=== PATIENT | male | born 1935 | race Caucasian/White ===

== ENCOUNTER 2021-01-11 04:09 | Inpatient (IN) | payer MEDICARE ==
[~2021-01-11] VITALS: Ht 177.8 cm; Wt 69.8 kg
[~2021-01-11 04:09] MED LIST: ACYC400T20 PO; ASPI-556 PO; CARV3.12 PO; SIMV-46 PO; TICA90TA PO
[2021-01-11 04:41] LABS: BASOPHILS % (AUTO) 0.5 % (0.0-5.0); EOSINOPHILS % (AUTO) 4.1 % (0.0-8.0); HEMATOCRIT 31.7 % (42-54); LYMPHOCYTES % (AUTO) 18.3 % (21.0-51.0); MEAN CORPUSCULAR HEMOGLOBIN 30.7 pg (27.0-33.0); MEAN CORPUSCULAR HGB CONC 33.1 g/dL (32.0-36.0); MEAN CORPUSCULAR VOLUME 92.7 fL (79-99); MONOCYTES % (AUTO) 5.6 % (3.0-13.0); NEUTROPHILS % (AUTO) 71.2 % (40.0-77.0); PLATELET COUNT (AUTO) 263 K/uL (130-400); RED BLOOD CELL COUNT(AUTO) 3.42 MIL/uL (4.50-6.20); RED CELL DISTRIBUTION WIDTH 13.9 % (11.0-15.5); WHITE BLOOD COUNT (AUTO) 8.6 K/uL (4.8-10.8)
[2021-01-11 04:46] LABS: CREATININE 2.1 mg/dL (0.5-1.5); POTASSIUM 4.8 mmol/L (3.5-5.1)
[2021-01-11 04:48] LABS: INR 1.05 (0.85-1.15); PROTHROMBIN TIME 11.4 SEC (9.6-11.6)
[2021-01-11 04:49] LABS: PARTIAL THROMBOPLASTIN TIME 23.6 SEC (26.3-35.5)
[2021-01-11 04:51] LABS: BILIRUBIN,TOTAL 0.3 mg/dL (0.2-1.0); TOTAL PROTEIN, SERUM 6.9 g/dL (6.0-8.3)
[2021-01-11 05:25] LABS: APPEARANCE,URINE Clear (CLEAR); BILIRUBIN,URINE Negative (NEGATIVE); COLOR,URINE Yellow (YELLOW); GLUCOSE, URINE (UA) Negative (NEGATIVE); KETONES,URINE Negative (NEGATIVE); LEUKOCYTE ESTERASE ,URINE Trace (NEGATIVE); NITRATE,URINE Negative (NEGATIVE); OCCULT BLOOD,URINE Small (NEGATIVE); PROTEIN,URINE POS 1+ mg/dL (NEGATIVE)
[2021-01-11 05:51] LABS: BACTERIA,URINE Few /HPF (None Seen); SQUAMOUS EPITHELIAL CELL,UR 0-2 /HPF (0-2)
[2021-01-11] MEDS ORDERED: CEFTRIAXONE 1G VIAL ONE (07:37)
[2021-01-11] MEDS ORDERED: ACETAMINOPHEN WITH CODEINE 1 TAB TAB ONE (07:49)
[2021-01-11] MEDS: CEFTRIAXONE 1G VIAL IVP SCH (09:00)
[2021-01-11 09:55] VITALS: BP 146/84
[2021-01-11] MEDS ORDERED: ACETAMINOPHEN WITH CODEINE 1 TAB TAB PO PRN (11:00)
[2021-01-11] MEDS ORDERED: 0.9%NACL 1000ML 1,000 ML IV SCH (11:15)
[2021-01-11 12:00] VITALS: BP 134/70
[2021-01-11] MEDS ORDERED: HYDROMORPHONE 0.5 MG SYG (0.5MG/0.5ML) IVP PRN (12:00)
[2021-01-11] MEDS ORDERED: ONDANSETRON 4MG INJ IVP PRN (12:00)
[2021-01-11 16:45] VITALS: BP 83/56
[2021-01-11 19:15] VITALS: BP 93/60
[2021-01-11 23:47] VITALS: BP 100/62
[2021-01-12 03:25] VITALS: BP 117/71
[2021-01-12 05:54] LABS: BASOPHILS % (AUTO) 0.1 % (0.0-5.0); EOSINOPHILS % (AUTO) 0.4 % (0.0-8.0); HEMATOCRIT 34.7 % (42-54); LYMPHOCYTES % (AUTO) 7.4 % (21.0-51.0); MEAN CORPUSCULAR HEMOGLOBIN 29.9 pg (27.0-33.0); MEAN CORPUSCULAR HGB CONC 32.3 g/dL (32.0-36.0); MEAN CORPUSCULAR VOLUME 92.8 fL (79-99); MONOCYTES % (AUTO) 3.4 % (3.0-13.0); NEUTROPHILS % (AUTO) 88.2 % (40.0-77.0); PLATELET COUNT (AUTO) 278 K/uL (130-400); RED BLOOD CELL COUNT(AUTO) 3.74 MIL/uL (4.50-6.20); WHITE BLOOD COUNT (AUTO) 16.4 K/uL (4.8-10.8)
[2021-01-12] MEDS: 0.9%NACL 1000ML 1,000 ML IV SCH ×3 (06:03→14:21)
[2021-01-12 06:21] LABS: CREATININE 2.9 mg/dL (0.5-1.5); MAGNESIUM 2.1 mg/dL (1.80-2.40); POTASSIUM 5.6 mmol/L (3.5-5.1)
[2021-01-12 08:56] VITALS: BP 116/69
[2021-01-12] MEDS: CEFTRIAXONE 1G VIAL IVP SCH (10:01)
[2021-01-12 13:35] VITALS: BP 98/70
[2021-01-12 16:30] VITALS: BP 135/74
[2021-01-12] MEDS ORDERED: BISACODYL 10 MG SUPP.RECT RC ONE ×2 (16:30→21:36)
[2021-01-12 20:05] VITALS: BP 135/76
[2021-01-13] VITALS (12 sets, daily range): BP systolic 114–143; BP diastolic 63–76
[2021-01-13] MEDS: 0.9%NACL 1000ML 1,000 ML IV SCH ×2 (04:41→20:58)
[2021-01-13 05:04] LABS: HEMATOCRIT 31.9 % (42-54); MEAN CORPUSCULAR HEMOGLOBIN 30.7 pg (27.0-33.0); MEAN CORPUSCULAR HGB CONC 32.6 g/dL (32.0-36.0); MEAN CORPUSCULAR VOLUME 94.1 fL (79-99); RED BLOOD CELL COUNT(AUTO) 3.39 MIL/uL (4.50-6.20); RED CELL DISTRIBUTION WIDTH 14.5 % (11.0-15.5); WHITE BLOOD COUNT (AUTO) 9.8 K/uL (4.8-10.8)
[2021-01-13 05:13] LABS: INR 1.05 (0.85-1.15); PROTHROMBIN TIME 11.4 SEC (9.6-11.6)
[2021-01-13 05:14] LABS: PARTIAL THROMBOPLASTIN TIME 28.5 SEC (26.3-35.5)
[2021-01-13 05:15] LABS: CREATININE 2.9 mg/dL (0.5-1.5); POTASSIUM 5.8 mmol/L (3.5-5.1)
[2021-01-13] MEDS: CEFTRIAXONE 1G VIAL IVP SCH (10:35)
[2021-01-13] MEDS ORDERED: LIDOCAINE HCL 1% MDV 50ML VIAL ONE (12:49)
[2021-01-13] MEDS ORDERED: IODIXANOL 320 MG/ML 100 ML VIAL ONE (12:49)
[2021-01-13] MEDS ORDERED: FENTANYL CITRATE PF 50 MCG/1 ML 2ML VIAL ONE (13:02)
[2021-01-13] MEDS ORDERED: MIDAZOLAM HCL 1 MG/ML 2ML VIAL ONE (13:02)
[2021-01-14 00:25] VITALS: BP 112/65
[2021-01-14 03:46] VITALS: BP 116/59
[2021-01-14] MEDS: 0.9%NACL 1000ML 1,000 ML IV SCH (06:31)
[2021-01-14 07:54] VITALS: BP 138/70
[2021-01-14] MEDS: CEFTRIAXONE 1G VIAL IVP SCH (11:25)
[2021-01-14 11:43] VITALS: BP 116/59
[2021-01-14 16:00] VITALS: BP 142/80
== END 2021-01-14 18:29 | disposition home health service (06) | DRG 694 ==
LOC: EDH 04:09 → EDHIP 06:46 → 3CH 09:58
PROVIDERS: ADMIT Internal Medicine; ATTEND Internal Medicine
PROC: 0T943ZZ Drainage of Left Kidney Pelvis, Percutaneous Approach (ICD-10-PCS; principal; 2021-01-13)
DX: N13.30 Unspecified hydronephrosis (principal); K56.600 Partial intestinal obstruction, unspecified as to cause; C79.51 Secondary malignant neoplasm of bone; K56.7 Ileus, unspecified; C61 Malignant neoplasm of prostate; N17.9 Acute kidney failure, unspecified; I71.4 Abdominal aortic aneurysm, without rupture; I25.10 Atherosclerotic heart disease of native coronary artery without angina pectoris; Z20.822 Contact with and (suspected) exposure to COVID-19; E78.5 Hyperlipidemia, unspecified; D64.9 Anemia, unspecified; D72.829 Elevated white blood cell count, unspecified; I12.9 Hypertensive chronic kidney disease with stage 1 through stage 4 chronic kidney disease, or unspecified chronic kidney disease; N18.9 Chronic kidney disease, unspecified; Z88.8 Allergy status to other drugs, medicaments and biological substances; Z95.1 Presence of aortocoronary bypass graft; Z85.46 Personal history of malignant neoplasm of prostate; Z95.5 Presence of coronary angioplasty implant and graft
CPT/HCPCS: 36415; 50432; 74021; 74176; 76770; 76942; 80048; 80053; 81001; 82948; 83690; 83735; 84153; 84484; 85025; 85027; 85610; 85730; 87088; 87426; 93005; 97039; 99156; C1729; C1894; G0378; J0696; J1644; J2250; J3010; J3490; J7030; Q9967; U0003